=== PATIENT | male | born 1970 | race Caucasian/White ===

== ENCOUNTER 2022-09-18 05:06 | Emergency (ER) | payer OTHER ==
[2022-09-18] MEDS ORDERED: ACETAMINOPHEN 500 MG TABLET (FP) PO ONE ×2 (05:22→05:23)
[2022-09-18 05:25] VITALS: BP 154/105; PULSE 87; RESP 18; TEMP 97.5; BMI 26.7
[2022-09-18] MEDS ORDERED: ACETAMINOPHEN 325 MG TABLET (FP) ONE (05:30)
[2022-09-18] MEDS ORDERED: IBUPROFEN 400 MG TABLET (FP) PO ONE ×2 (05:35→05:50)
== END 2022-09-18 07:03 | disposition home or self-care (01) ==
LOC: JER 05:06
DX: M25.512 Pain in left shoulder (principal); M54.2 Cervicalgia; M54.50 Low back pain, unspecified; M53.3 Sacrococcygeal disorders, not elsewhere classified; R20.2 Paresthesia of skin; V87.7XXA Person injured in collision between other specified motor vehicles (traffic), initial encounter
CPT/HCPCS: 72100-TC-FY; 99283-25